=== PATIENT | male | born 1965 | race Caucasian/White ===

== ENCOUNTER → 2020-06-16 17:08 | Outpatient (BNVA) | payer MEDICAID, SELFPAY | PROVIDERS: Family Provider Nurse Practitioner Family; PCP Nurse Practitioner Family; Visit Provider Nurse Practitioner Family | DX: I10 Essential (primary) hypertension (principal); M25.512 Pain in left shoulder; L98.9 Disorder of the skin and subcutaneous tissue, unspecified; R07.9 Chest pain, unspecified; F17.210 Nicotine dependence, cigarettes, uncomplicated | CPT/HCPCS: 73030; 80053; 80061; 84443; 85025 ==

== ENCOUNTER 2020-08-04 11:25 | Emergency (ER) | payer MEDICAID, SELFPAY ==
[2020-08-04 12:10] VITALS: BP 185/106; PULSE 89; RESP 18; TEMP 36.7; O2SAT 99; BMI 20.7
--- NOTE | 2020-08-04 12:39 | ED_ITS ---
HPI - Skin/Abscess/Foreign Bdy General: Chief complaint: Skin/Abscess/Foreign Body Stated complaint: Rash/Bites all over body Time Seen by Provider: 08/04/20 12:02 Source: patient Mode of arrival: ambulatory Limitations: no limitations History of Present Illness: HPI narrative: 55-year-old male has had a rash to his hands arms and body over the last week to 10 days. State is very pruritic and has had the same rash. Denies any fever denies any pain denies any worsening improving factors. MD complaint: rash Onset (ago): week(s) Associated symptoms: Deny chills, fever(s), nausea or vomiting Review of Systems 2 Const: Denies: fever(s), chills, body aches or change in appetite Eyes: Denies: blurry vision or eye discomfort ENMT: Denies: throat pain or dental pain Card: Denies: chest pain Resp: Denies: dyspnea GI: Denies: abdominal pain, nausea, vomiting or diarrhea : Denies: dysuria Musc: Denies: neck pain or back pain Skin/Breast: Reports: rash Neuro: Denies: headache(s) Psych: Denies: depression Femi/Lymph: Denies: easy bruising All/Imm: Denies: urticaria PFSH ED PFSH: Medical History Hypertension Surgical History History of back surgery steel plate Social History Smoking and tobacco status: current every day smoker cigarettes Packs smoked per day: 0.5 Years cigarettes smoked: 40 Second hand smoke exposure: Yes Alcohol intake: former Year of sobriety/quit date alcohol: 2014 Former alcohol use details: drank beer Lives independently: Yes Household members: significant other Marital status: service: No Current occupational status: retired History of recent travel: No Current gender identity: Male Special chantale needs: No Agree to transfusion: Yes Physical Exam Const: COMMON NORMALS: no acute distress, patient oriented x3 and healthy appearing HENMT: COMMON NORMALS: normocephalic and atraumatic HEAD & SCALP: nor mocephalic and atraumatic Eye: COMMON NORMALS: Equal, round and reactive pupils present and EOMs intact bilaterally PUPIL: Yes Equal, round and reactive pupils present Neck/C-Spine: COMMON NORMALS: full ROM and supple Chest: COMMONS NORMALS: normal inspection of the chest and normal palpation of entire chest wall Resp: COMMON NORMALS: normal respiratory effort, No retractions, No use of accessory muscles and clear to auscultation bilaterally AUSCULTATION: clear to auscultation bilaterally Cardio: COMMON NORMALS: regular rate, regular rhythm and No murmurs present (Cardio) RATE: regular rate RHYTHM: regular rhythm GI: COMMON NORMALS: Normal to inspection, nondistended, normoactive bowel sounds present, Soft to palpation, non-tender and no masses PALPATION: Yes Soft to palpation Extremity: COMMON NORMALS: normal to inspection and full ROM Neuro: COMMON NORMALS: patient oriented x3, moves all extremities and no focal motor deficits Psych: COMMON NORMALS: mental status grossly normal, Normal thought process present and cooperative THOUGHT PROCESS: Normal thought process present Skin: COMMON NORMALS: no wounds; negative for no rashes or lesions noted NARRATIVE SKIN EXAM: Rash noted to hands and arms appearance of scabies GENERAL SKIN EXAM: rashes and/or lesions noted Course Vital Signs: Vital signs: Vital Signs Temperature 98.1 F 08/04/20 12:10 Pulse Rate 89 08/04/20 12:10 Respiratory Rate 18 08/04/20 12:10 Blood Pressure 185/106 08/04/20 12:10 Pulse Oximetry 99 08/04/20 12:10 MDM - Skin/Abscess/Foreign Bdy MDM Narrative: Medical decision making narrative: Patient presents here with likely scabies. Patient prescribed permethrin and is stable for discharge. She is well-appearing here. He is return if worsening. 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
== END 2020-08-04 13:13 | disposition home or self-care (01) ==
PROVIDERS: Emergency Provider Emergency Medicine; PCP Nurse Practitioner Family
DX: B86 Scabies (principal); I10 Essential (primary) hypertension; F17.210 Nicotine dependence, cigarettes, uncomplicated
CPT/HCPCS: 12345; 99281; 99282

== ENCOUNTER 2025-04-18 20:35 | Inpatient (IN) | payer MEDICAID, SELFPAY ==
[2025-04-18] VITALS (12 sets, daily range): BP systolic 123–141; BP diastolic 72–108; PULSE 0–100; RESP 14–31; TEMP 36.1–36.2; O2SAT 92–100; BMI 21.8
--- NOTE | 2025-04-18 20:40 | XRR_ITS ---
PROCEDURE INFORMATION: Exam: XR Chest Exam date and time: 04/18/2025 8:33 PM Age: 60 years old Clinical indication: Pain; Chest pressure; EMS arrival for stemi alert; Additional info: Cp TECHNIQUE: Imaging protocol: Radiologic exam of the chest. Views: 1 view. COMPARISON: CR XR shoulder LT min 2V* [id number] 06/16/2020 5:14 PM FINDINGS: Lungs: Unremarkable. No consolidation. Pleural spaces: Unremarkable. No pleural effusion. No pneumothorax. Heart/Mediastinum: Unremarkable. No cardiomegaly. Bones/joints: Unremarkable. XR/XR chest 1V portable [id number] IMPRESSION: No acute findings.
--- NOTE | 2025-04-18 20:40 | ECG_ITS ---
[employer] Test Date: 2025-04-18 Pat Name: Fortino Barfield Jr Department: Room: [facility] Gender: Male Controlled Area Checker: : 1965 Requested By: Pedro Vu Order Number: [id number] Sharlene MD: Yordy Arrieta M.D. Measurements Intervals [place] Rate: 42 P: 0 RI: 0 QRS: 72 QRSD: 93 T: 83 QT: 474 QTc: 399 Interpretive Statements SINUS RHYTHM WITH COMPLETE HEART BLOCK ST ELEVATION MYOCARDIAL INFARCTION, INFERIOR LEADS SEPTAL ST DEPRESSION, CONSIDER POSTERIOR INFARCT No previous ECG available for comparison Electronically Signed On 04-21-2025 14:00:42 CDT by Yordy Arrieta M.D. [email or web address] [id number]
[2025-04-18] MEDS: heparin 5,000 unit/mL INJ 1 mL 4000 UNIT IVP (20:45)
--- OUTSIDE RECORDS SUMMARY | 2025-04-18 20:46 | XMS_ITS | Patient Health Record ---
Author Organization [facility] Address [address] [place] [address] Care Team Providers Care Emergency Detail Driver Name Role Phone Rafaela Tucker Primary Care Provider [phone] Reason For Referral No Information Medications Medication SIG (Take, Route, Frequency, Duration) Notes Start Date End Date Status Permethrin 1 % Lotion 1 application, as directed Externally Two times a Week Active Mebendazole 100 MG Tablet Chewable 2 tablet Orally Twice a day; Duration: 3 day(s) 11/16/2020 Active Social History Tobacco Use: Social History Observation Description Date Details (start date - stop date) Current Smoker NA - NA Social History Depression Screening Social Info Question Answer Notes PHQ-9 Little interest or pleasure in doing thin gs Not at all Feeling down, depressed, or hopeless Not at all Trouble falling or staying asleep, or sleeping t oo much Not at all Feeling tired or having little energy Not at all Poor appetite or overeating Not at all Feeling bad about yourself, or that you are a failure, or have let yourself or your family down Not at all Trouble concentrating on thi ngs, such as reading the newspaper or watching television Not at all Moving or speaking so slowly that other people could have noticed. Or the opposite ? being so fidgety or restless that you have been moving around a lot more than usual Not at all Thoughts that you would be b leon off , or of hurting yourself in some way Not at all Total Score 0 Drugs/Alcohol: Social Info Question Answer Notes Alcohol Screen (Audit-C) Did you have a drink containing alcohol in the past year? No Points 0 Interpretation Negative Tobacco Use: Social Info Question Answer Notes xTobacco Use/Smoking Are you a current smoker How often do you smoke cigarettes? every day How many cigarettes a day do you smoke? 11-20 Additional Details Category Social Info Options Details Drugs/Alcohol: Do you smoke marijuana? Ad mits, Recreational use Section Notes: 11/16/20 Plan Of Treatment No Information Insurance Providers Payer Name Payer Address Payer Phone Subscriber Number Group Number Insured Name Patient Relationship to Insured Coverage Start Date Coverage End Date [place] Medicaid [address] [place] [phone] [id number] Fortino Barfield Self - patient is the insured Medical (General) History Medical History History ICD Code hypertension Surgical History Surgery Date(Month/Year) back surgery
--- NOTE | 2025-04-18 20:48 | XACV_ITS ---
Exam Room: 2 Ht: 178 cm Wt: 71 kg BSA: 1.88 m2 Gender: Male : 1965 Exam Priority: Routine Procedure(s): Procedure Description: Diagnostic procedure Procedure Description: PCI procedure Procedure Description: Drug Eluting Coronary Stent Procedure Description: PTCA Procedure Description: Miscellaneous Procedure Description: ACT Procedure Description: Coronary Angiography Diagnostic Cath Status: Emergency Diagnostic Findings * Left Main has no significant disease. * Left Anterior Descending has severe 70-80% mid vessel calcified disease. * Circumflex has no significant disease. * Mid Right Coronary Artery: Total thrombotic occlusion. DIONNE 0 flow. This is culprit vessel for STEMI. Proximal and distal vessel has severe 80% stenosis. * Coronary angiography shows right dominance. PCI Status: Emergency PCI Indication: STEMI - Immediate PCI for STEMI Interventional Findings * Mid Right Coronary Artery: 100% stenosis treated with a MDT Benson GLENROY 3.0X38 LORETTA, MDJo BERGMAN EUPHORA RX [id number] BALLOON, and AB TREK 3.00X25 RX BALLOON. * Procedure details: We engaged RCA with JR 4 guide catheter. IV heparin was administered to maintain anticoagulation. Runthrough guidewire was used to cross the occluded vessel segment and was placed in the distal vessel. We predilated the stenosis with 2.5x12mm semicompliant balloon. This restored flow with severe disease from proximal to distal vessel. Patient went into ventricular tachycardia s/p 1 shock that restored the rhythm. We then predilated the stenosis serially from distal to proximal vessel with 3.0x25mm semicompliant balloon. we then placed a 3.0x38mm Resolute glenroy LORETTA in the mid to distal vessel. This was followed by placement of an overlapping 3.0x38 mm Resolute glenroy LORETTA in the proximal to mid RCA. We post dilated these stents with 3.5x12mm NC balloon. At this time we performed the final angiogram that showed excellent stent expansion, DIONNE 3 flow and no residual stenosis. * Proximal Right Coronary Artery: 70% stenosis treated with a AB TREK 2.50X12 RX BALLOON, MDT R GLENROY 3.0X38 LORETTA, and MDT NC EUPHORA RX [id number] BALLOON. * Distal Right Coronary Artery: 70% stenosis treated with a AB TREK 3.00X25 RX BALLOON, and MDT NC EUPHORA RX [id number] BALLOON. Conclusions 1. Total thrombotic occlusion of mid RCA s/p successful revascularization with 2 stents. Has severe mid LAD stenosis, if patient shows compliance with DAPT, will plan for staged PCI in 2-4 weeks. 2. Patient went into VT briefly during the procedure and had 1 shock delivered. 3. Proximal Right Coronary Artery was treated with a Balloon, Drug Eluting Stent, and Balloon. 4. Mid Right Coronary Artery was treated with a Drug Eluting Stent, Balloon, and Balloon. 5. Distal Right Coronary Artery was treated with a Balloon, and Balloon. Recommendations * Dual antiplatelet therapy with aspirin and plavix for atleast 1 year. * High intensity statin therapy. * Outpatient cardiology follow up in 2 weeks. Will discuss staged PCI of LAD at that time. Interventional RX Recommendation: PCI w/o planned CABG Diagnostic RX Recommendation: PCI w/o planned CABG Anticoagulation: Heparin Pressures Phase:Rest AO : 122 / 94 ( 92 ) @ 4:51:52 PM 86 / 58 ( 68 ) @ 4:51:52 PM 76 / 60 ( 68 ) @ 4:51:52 PM Clinical Evaluation EBL: 5mL-10mL Procedural Details Pre-Procedure Time Out. Identified patient by full name and date of as verbalized by the patient/guarantor. Accurate & Complete Informed Consent: N/A Emergent; Informed Consent not obtained due to time critical life threat. Inpatient/Outpatient History & Physical on Chart: N/A Emergent; Informed Consent not obtained due to time critical life threat. Visualize and Verify Site with Patient/Guarantor: N/A. Relevant Radiology Images available: N/A. Pre-op teaching completed and patient verbalized understanding. The risks, benefits, and alternatives of sedation and/or procedure were discussed by physician. The patient agrees to continue. Procedure started. [facility] Clinical Fraility Score: 4: Vulnerable. Body Service Team Member Indications: ACS <= 24 hours. Chest Pain Symptom Assessment: Typical Angina Symptoms. Correct patient, site and procedure confirmed by cath team. Current diagnosis: STEMI. PERRLA. Strong, equal hand buyer bilaterally. Lungs clear x 5 lobes. IV Site on Arrival: 20 gauge in the left anticubital. IV Fluids: 0.9% NaCl at KVO. 100 mL infused prior to film laboratory technician. Oxygen started at 2liters/min via nasal canula. bilateral groins was prepped with chloroprep then draped in the usual sterile fashion. Physician notified. Baseline sample Acquired. HR: 47 BPM. Physician arrived. Physician scrubbed in. Immediate Pre-Procedure Time Out. Correct Patient: Yes; Correct Procedure: Yes; Correct Site: Yes; Correct Patient Position: Yes; Correct Supplies: Yes; Dried Flammable Prep: Yes; Blood Products Available: No;. Lidocaine 1% infiltrated to the right groin. Baseline sample Acquired. HR: 41 BPM. An attempt to gain access to the right femoral artery was unsuccessful. Manual pressure was held as needed to stop the bleeding. Admit Source: Emergency department. Lidocaine 1% infiltrated to the left groin. Arterial access obtained with micropuncture set. PCI Indication: STEMI. 6 [place] JR 4 guide catheter was inserted over the wire. Add inventory: Co-jet pilot, endoflator. View taken of RCA. Runthrough guidewire was advanced through the guide catheter to lesion in the prox RCA. Balloon inserted to lesion in the prox RCA. Inflation number : 1 A AB TREK 2.50X12 RX BALLOON was prepped and advanced across the Prox RCA , then inflated to 10 RANDY for 0:10 seconds. Inflation number: 2 The AB TREK 2.50X12 RX BALLOON was reinflated across the Prox RCA, to 10 RANDY for 0:07 seconds. Balloon out. Results checked. V-tach, one shock delivered at 120 joules. Balloon inserted to lesion in the mid to distal RCA. Inflation number : 1 A AB TREK 3.00X25 RX BALLOON was prepped and advanced across the Dist RCA , then inflated to 10 RANDY for 0:08 seconds. Inflation number: 2 The AB TREK 3.00X25 RX BALLOON was reinflated across the Dist RCA, to 10 RANDY for 0:05 seconds. Inflation number: 3 The AB TREK 3.00X25 RX BALLOON was reinflated across the Mid RCA, to 10 RANDY for 0:08 seconds. Balloon out. Stent inserted to lesion in the mid to distal RCA. Unable to cross. Undeployed stent out OTW. 6fr Guideliner catheter in OTW. Stent inserted to lesion in the mid to distal RCA. Inflation Number : 1 A MDT R GLENROY 3.0X38 LORETTA -Lot Number#[id number] 11-27-2027 was prepped and advanced across the Mid RCA. The stent was deployed at 12 RANDY for 0:11 seconds. Stent balloon out over wire. Stent inserted to lesion in the prox RCA. Inflation Number : 3 A MDT R GLENROY 3.0X38 LORETTA -Lot Number# was prepped and advanced across the Prox RCA. The stent was deployed at 12 RANDY for 0:14 seconds. Stent balloon out over wire. Results checked. Balloon inserted to lesion in the mid to distal RCA. Unable to cross with NC Euphora 3.5 X 27mm. Undeployed balloon out over the wire. Balloon inserted to lesion in the mid to distal RCA. Inflation number : 3 A MDT NC EUPHORA RX 3.03H21TX BALLOON was prepped and advanced across the Dist RCA , then inflated to 20 RANDY for 0:14 seconds. Inflation number: 4 The MDT NC EUPHORA RX 3.84G45KP BALLOON was reinflated across the Dist RCA, to 20 RANDY for 0:11 seconds. Inflation number: 2 The MDT NC EUPHORA RX 3.22I91II BALLOON was reinflated across the Mid RCA, to 20 RANDY for 0:07 seconds. Inflation number: 4 The MDT NC EUPHORA RX [id number] BALLOON was reinflated across the Prox RCA, to 20 RANDY for 0:08 seconds. Inflation number: 5 The MDT NC EUPHORA RX 3.19O57IM BALLOON was reinflated across the Prox RCA, to 20 RANDY for 0:08 seconds. Inflation number: 6 The MDT NC EUPHORA RX 3.83P97AS BALLOON was reinflated across the Prox RCA, to 20 RANDY for 0:16 seconds. Balloon out. Guideliner out otw. Results checked. Levophed gtt turned off. A 5 citizen [place] JL4 catheter in over wire. ACT drawn. Results 390 seconds. Therapeutic limits - pre-heparin administration 90-150 seconds and monitoring heparin during a vascular procedure >250 seconds. Multiple views taken of left coronary artery. Catheter removed over the standard wire. A Left femoral angiogram was performed to determine safe placement of closure device. A Left femoral angiogram was performed to determine safe placement of closure device. ACT drawn. Results 263 seconds. Therapeutic limits - pre-heparin administration 90-150 seconds and monitoring heparin during a vascular procedure >250 seconds. Physician scrubbed out. A Suture was successful obtaining hemostatsis at the Left Femoral artery insertion site. Sheath(s) sutured into position with 2-0 silk and sterile 4x4's and Op-site applied over the site. No oozing or signs and symptoms of hematoma noted. Arterial sheath flushed and connected to tranducer and pressure bag with heparinized saline. Post Procedure: Pulses reassessed and unchanged. PERRLA. Strong, equal hand buyer bilaterally. No VTE prophylaxis required. Medication's Wasted: Lidocaine 1% = 10 mL. Medication's Wasted: Other = Fentanyl 75mcg,Versed 1 mg. Total IV fluids: 270 mL. Post-op diagnosis: Total occlusion RCA. Inferior ME. Status post PCI placement of 2 LORETTA. Complications: None. Estimated blood loss: 5mL-10mL. Responsiveness - Normal response to verbal stimuli; alert and oriented, PERRLA. Airway - Unaffected, no intervention required; spontaneous ventilation. Circulation: W/N/L, pulses unchanged. Nausea/Vomiting: No. Procedure completed. Patient transferred by bed to ICU. Vital chart was stopped. Access Site Site: Left Femoral artery Sheath Size: 6 Fr Hemostasis Method: Suture Hemostasis Success: Successful Procedure Medications Start: 9:04 PM Stop: 9:04 PM Medication: Solu-Medrol (methylprednisolone) Amount: 250 mg Route: I.V. Start: 9:04 PM Stop: 9:04 PM Medication: Versed Amount: 1 mg Route: I.V. Start: 9:10 PM Stop: 9:10 PM Medication: Versed Amount: 1 mg Route: I.V. Start: 9:11 PM Stop: 9:11 PM Medication: Heparin Amount: 3000 units Route: I.V. Start: 9:13 PM Stop: 9:13 PM Medication: Fentanyl Amount: 25 mcg Route: I.V. Start: 9:14 PM Stop: 9:14 PM Medication: 0.9% Saline Amount: 250 ml Route: I.V. bolus Start: 9:15 PM Stop: 9:15 PM Medication: Atropine Amount: 0.5 mg Route: I.V. Start: 9:19 PM Stop: 9:19 PM Medication: Levophed (norepinephrine) Amount: 4 mcg/min Route: I.V. drip Start: 9:26 PM Stop: 9: PM Medication: Heparin Amount: 1000 units Route: I.V. Start: 9:28 PM Stop: 9: PM Medication: Versed Amount: 1 mg Route: I.V. Start: 9:44 PM Stop: 9:44 PM Medication: Heparin Amount: 1000 units Route: I.V. I, the attending physician, have reviewed and verified all procedure medications. Yes, all medications given per verbal order Report Signatures Finalized by Keron Tovar MD on 04/25/2025 10:47 PM
[2025-04-18 20:49] LABS: Hematocrit 39.3 % (37-53); Hemoglobin 12.80 g/dL (11.27-16.99); Mean Corpuscular HGB Conc 32.6 g/dL (30-55); Mean Corpuscular Hemoglobin 30.2 pg (27-33); Mean Corpuscular Volume 92.7 fl (82-101); Nucleated Red Blood Cells % 0 %; Platelet Count 350 10^3/cmm (157-399); Red Blood Count 4.24 10^6/uL (3.85-5.65); White Blood Count 10.14 10^3/uL (3.29-11.43)
--- NOTE | 2025-04-18 20:51 | P.HP_ITS ---
Providers/Chief Complaint 2 Admitting Physician: Keron Fish MD Primary Care Provider: Rafaela Tucker APN Chief Complaint: STEMI ALERT History of Present Illness Fortino Barfield Jr is a 60 year old male with no prior cardiac history was brought by EMS secondary to chest pain. Patient says pain started yesterday however worsened today. On EKG he has inferior ST elevation MS and complete heart block. Plan for emergent cardiac cath with PCI Review of Systems 2 Card: Reports: chest pain Medications/Allergies Home Medications ?Medication ?Instructions ?Recorded ?Confirmed ?Last Taken ?Type lisinopril 20 mg tablet 20 mg PO DAILY #30 tabs 05/2506/16/20 Unknown Rx permethrin 5 % topical cream 1 applic topical Q14D 2 d oses #60 08/04/20 Unknown Rx grams Allergies Allergy/AdvReac Type Severity Reaction Status Date / Time No Known Allergies Allergy Verified 04/18/25 20:48 PFSH Acute 2 PFSH: Medical History Hypertension Surgical History History of back surgery steel plate Social History Smoking and tobacco/nicotine status: current every day tobacco/nicotine user cigarettes Packs smoked per day: 0.5 Years cigarettes smoked: 40 Second hand smoke exposure: Yes Alcohol intake: former Year of sobriety/quit date alcohol: 2014 Former alcohol use details: drank beer Substance/Drug Use: never Lives independently: Yes Household members: significant other Marital status: service: No Current occupational status: retired Current gender identity: Male Special chantale needs: No Agree to transfusion: Yes Vitals/I&O/Wt Last Vital Signs Temp 96.9 F L 04/18/25 20:37 Pulse 42 L 04/18/25 20:37 Resp 14 04/18/25 20:37 BP 135/72 04/18/25 20:37 Pulse Ox 100 04/18/25 20:37 O2 Del Method Room Air 04/18/25 20:37 04/18/25 04/18/25 04/18/25 06:59 14:59 22:59 Intake Total 1000 / 1000 Balance 1000 / 1000 Weight last 48 hrs Weight 157 lb Physical Exam 2 Narrative: GENERAL: Patient is alert, awake and oriented x3. HEART: Regular S1 and S2. Grade 2/6 systolic murmur. LUNGS: Clear to auscultate bilaterally. CENTRAL NERVOUS SYSTEM: Grossly nonfocal. EXTREMITIES: Lower extremities without edema bilaterally. Data 04/18/25 20:42 04/18/25 20:42 A&P Assessment and plan 1. STEMI (ST elevation myocardial infarction): 2. Hypertension: Plan: Patient presented with acute inferior wall ST elevation MS. Plan for emergent cardiac catheterization with PCI Patient has been loaded with aspirin, Plavix and heparin bolus given Post procedure will need ICU transfer PDMP PDMP Reviewed: Not Reviewed Attestations 2 Medical Necessity Statement*: Care expected to cross 2 midnights. Patient has presented with acute inferior wall ST elevation MS and going for emergent procedure. Coding Level of Care Code Acute Code for [facility] Diagnoses STEMI (ST elevation myocardial infarction) I21.3 Hypertension I10
--- NOTE | 2025-04-18 20:56 | ED_ITS ---
HPI - Chest Pain 2 General: Chief Complaint: Chest Pain Stated Complaint: STEMI ALERT Time Seen by Provider: 04/18/25 20:40 History of Present Illness: 60-year-old male gentleman with no prior history of coronary disease. He presents with chest discomfort that started yesterday evening. It worsened today after eating breakfast. Pain continued to worsen this evening. He has been short of breath. His arms felt numb he says. EMS was called. EKG in the field was remarkable for inferior ST elevation. He comes in as a STEMI alert. He is awake. He is talking. Blood pressures were initially low, blood pressure currently 135 systolic. Related Data Previous Rx's ?Medication ?Instructions ?Recorded lisinopril 20 mg tablet 20 mg PO DAILY #30 tabs 05/25 01/10 permethrin 5 % topical cream 1 applic topical Q14D 2 d oses #60 08/04/20 grams Allergies Allergy/AdvReac Type Severity Reaction Status Date / Time No Known Allergies Allergy Verified 04/18/25 20:48 [facility] ED 2 PFSH: Medical History (Updated 04/18/25 @ 22:36 by Pedro Ya DO) Hypertension Surgical History History of back surgery steel plate Social History Smoking and tobacco/nicotine status: current every day tobacco/nicotine user cigarettes Packs smoked per day: 0.5 Years cigarettes smoked: 40 Second hand smoke exposure: Yes Alcohol intake: former Year of sobriety/quit date alcohol: 2014 Former alcohol use details: drank beer Substance/Drug Use: never Lives independently: Yes Household members: significant other Marital status: service: No Current occupational status: retired Current gender identity: Male Special chantale needs: No Agree to transfusion: Yes Physical Exam 2 Const: GENERAL APPEARANCE: cooperative and ill appearing NUTRITIONAL APPEARANCE: thin HENMT: COMMON NORMALS: normocephalic, atraumatic and Normal external nose present HEAD & SCALP: normocephalic and atraumatic FACE & SINUS: normal facial exam and face symmetric NOSE: Normal external nose present Eye: COMMON NORMALS: Equal, round and reactive pupils present and EOMs intact bilaterally PUPIL: Yes Equal, round and reactive pupils present Resp: COMMON NORMALS: normal respiratory effort and No use of accessory muscles Cardio: COMMON NORMALS: regular rate and regular rhythm RATE: regular rate RHYTHM: regular rhythm GI: COMMON NORMALS: Soft to palpation PALPATION: Yes Soft to palpation Extremity: COMMON NORMALS: no pedal edema Course 2 Vital Signs: Vital signs: Vital Signs Temperature 96.9 F L 04/18/25 20:37 Pulse Rate 95 04/18/25 22:00 Respiratory Rate 14 04/18/25 20:50 Blood Pressure 135/72 04/18/25 20:50 Pulse Oximetry 100 04/18/25 20:50 Oxygen Delivery Me thod Room Air 04/18/25 20:50 MDM - Chest Pain Medical Decision Making EKG in the field was significant for ST elevation NE in the inferior leads, with periods of complete heart block. He has been bradycardic in the 40s. He is maintaining a pressure. He is awake and talking. Atropine has been ordered for the bedside, although with complete heart block it may not work. Pacer pads are on. He has been given aspirin in the field, will on arrival he received heparin bolus as well as Plavix 600 mg. He received 4 morphine and 4 Zofran for pain and nausea. He is getting a fluid bolus. As he came in as a STEMI alert from the field, the cath team arrived shortly after he did, and have taken him to the [facility] for angiogram. His chest x-ray is clear. White blood cell count is 10, platelet count is normal. Hemoglobin is 13 Lab Data 04/18/25 20:42 04/18/25 20:42 Radiology Impressions Chest X-Ray 04/18/25 20:40 IMPRESSION: No acute findings. Laboratory Results WBC 10.14 10^3/uL (3.29-11.43) 04/18/25 20:42 RBC 4.24 10^6/uL (3.85-5.65) 04/18/25 20:42 Hgb 12.80 g/dL (11.27-16.99) 04/18/25 20:42 Hct 39.3 % (37-53) 04/18/25 20:42 MCV 92.7 fl (82-101) 04/18/25 20:42 MCH 30.2 pg (27-33) 04/18/25 20:42 MCHC 32.6 g/dL (30-55) 04/18/25 20:42 RDW 13.5 % (12.1-15.1) 04/18/25 20:42 Plt Count 350 10^3/cmm (157-399) 04/18/25 20:42 MPV 8.9 fL (7.4-10.4) 04/18/25 20:42 Neut % (Auto) 70.3 % 04/18/25 20:42 Lymph % (Auto) 21.9 % 04/18/25 20:42 [place] % (Auto) 6.0 % 04/18/25 20:42 Eos % (Auto) 0.9 % 04/18/25 20:42 Baso % (Auto) 0.6 % 04/18/25 20:42 Neut # (Auto) 7.13 10^3/uL (1.8-7.7) 04/18/25 20:42 Lymph # (Auto) 2.2 10^3/uL (0.8-4.8) 04/18/25 20:42 [place] # (Auto) 0.6 10^3/uL (0.2-0.9) 04/18/25 20:42 Eos # (Auto) 0.1 10^3/uL (0.0-0.8) 04/18/25 20:42 Baso # (Auto) 0.1 10^3/uL (0.0-0.1) 04/18/25 20:42 Nucleated RBC % (auto) 0 % 04/18/25 20:42 Nucleated RBCs # 0.0 /100WBC 04/18/25 20:42 PT 13.00 SECONDS (12.1-14.9) 04/18/25 20:42 INR 0.92 (0.8-1.2) 04/18/25 20:42 APTT 29.8 SECONDS (23.9-36.7) 04/18/25 20:42 Sodium 143 mmol/L (136-145) 04/18/25 20:42 Potassium 4.2 mmol/L (3.5-5.1) 04/18/25 20:42 Chloride 109 mmol/L (98-107) H 04/18/25 20:42 Carbon Dioxide 22 mmol/L (22-29) 04/18/25 20:42 Anion Gap 16.2 (5-19) 04/18/25 20:42 BUN 19 mg/dL (8-23) 04/18/25 20:42 Creatinine 1.3 mg/dL (0.7-1.2) H 04/18/25 20:42 GFR Calculation 56.1 mL/min (90-130) L 04/18/25 20:42 Glucose 110 mg/dL (65-115) 04/18/25 20:42 Calculated Osmolality 299 mOsm/kg (285-295) H 04/18/25 20:42 Calcium 9.1 mg/dL (8.5-10.5) 04/18/25 20:42 Total Bilirubin 0.4 mg/dL (0.15-1.2) 04/18/25 20:42 AST 21 U/L (0-40) 04/18/25 20:42 ALT 18 U/L (0-41) 04/18/25 20:42 Alkaline Phosphatase 79 U/L (40-130) 04/18/25 20:42 Troponin T Baseline 29 ng/L (0-15) H 04/18/25 20:42 NT-Pro-B Natriuret Pep 73 pg/mL (0-125) 04/18/25 20:42 Total Protein 6.2 g/dL (6.6-8.7) L 04/18/25 20:42 Albumin 3.9 g/dL (3.5-5.2) 04/18/25 20:42 Globulin 2.3 g/dL (1.3-4.6) 04/18/25 20:42 All radiology interpretation(s) finalized by discharge Critical Care Time 2 Critical Care Time: Critical Care Time: Yes Total Critical Care Time: 35 Attestation: This case had a high probability of a clinically significant, sudden, or life threatening deterioration of this patient's condition which required my full and direct attention, intervention and personal management. Time is independent of any procedures performed. Discharge Plan Discharge Patient Disposition: Admitted As Inpatient Admit Provider: Keron Tovar Clinical Impression: STEMI (ST elevation myocardial infarction) Condition: Critical Coding Level of Care Code ED Kayaking Instructor for Alex Ngo
[2025-04-18 21:01] LABS: INR 0.92 (0.8-1.2); Prothrombin Time 13.00 SECONDS (12.1-14.9)
[2025-04-18 21:02] LABS: Partial Thromboplastin Time 29.8 SECONDS (23.9-36.7)
[2025-04-18 21:10] LABS: Troponin(5th) Baseline 29 ng/L (0-15)
[2025-04-18 21:17] LABS: Alanine Aminotransferase 18 U/L (0-41); Albumin Level 3.9 g/dL (3.5-5.2); Alkaline Phosphatase 79 U/L (40-130); Anion Gap 16.2 (5-19); Aspartate Amino Transferase 21 U/L (0-40); Blood Urea Nitrogen 19 mg/dL (8-23); Calcium 9.1 mg/dL (8.5-10.5); Carbon Dioxide 22 mmol/L (22-29); Chloride 109 mmol/L (98-107); Creatinine Clr Calc Pharmacy 61.0103; Globulin 2.3 g/dL (1.3-4.6); Glucose 110 mg/dL (65-115); NT Pro B Type Natriuretic Pept 73 pg/mL (0-125); Osmolality Calculated 299 mOsm/kg (285-295); Potassium 4.2 mmol/L (3.5-5.1); Sodium 143 mmol/L (136-145); Total Protein 6.2 g/dL (6.6-8.7)
--- NOTE | 2025-04-18 21:56 | PM.PROC ---
Procedure Note: Date of procedure: 04/18/25 Pre-procedure diagnosis: STEMI Post-procedure diagnosis: other (Total thrombotic occlusion of mid RCA s/p PCI with 2 stents) Procedure: Mid RCA is totally occluded with severe disease from proximal to mid vessel. Status post successful revascularization with 2 stents. Mid LAD has significant 70% stenosis. Will need PCI as a staged procedure. According to patient's friend, the patient is not compliant with medications and does not follow with physicians. After discussion with patient, we will decide if LAD can be stented in case he shows willingness to medication compliance. Patient had shock x1 as went into Ventricular tachycardia Dual antiplatelet therapy with aspirin and plavix High intensity statin therapy Performing Provider: Keorn Tovar Complications: None Condition: critical Disposition: ICU Coding Level of Care Code Acute Code for Alex Ngo
--- NOTE | 2025-04-18 22:07 | ECG_ITS ---
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
[2025-04-18 23:10] LABS: Troponin 5 2HR 264.7 ng/L (0-15); Troponin 5 2HR Delta 235.7 ABS# (0-10)
[2025-04-19] VITALS (65 sets, daily range): BP systolic 90–153; BP diastolic 56–90; PULSE 57–104; RESP 5–27; TEMP 36.6; O2SAT 80–99
--- NOTE | 2025-04-19 02:40 | ECG_ITS ---
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
[2025-04-19 04:32] LABS: Troponin 5 6HR 855.8 ng/L (0-15); Troponin 5 6HR Delta 826.8 ng/L (0-12)
--- OUTSIDE RECORDS SUMMARY | 2025-04-19 09:49 | XMS_ITS | Patient Health Record ---
Author Organization [facility] Address [address] [place] [address] Care Team Providers Care Pediatric Acute Care Unit Nurse Name Role Phone Rafaela Tucker Primary Care Provider [phone] Reason For Referral No Information Medications Medication [...] End Date [place] Medicaid [address] [place] [address] [id number] Fortino Barfield Self - patient is the insured Medical (General) History Medical History History ICD Code hypertension Surgical History Surgery Date(Month/Year) back surgery
--- NOTE | 2025-04-19 10:19 | PC.NURSE ---
Dr. Deleon came to bedside placed minx closure device to Left groin femoral sheath
--- NOTE | 2025-04-19 11:26 | PC.PHAR ---
Patient states he is not taking any medications. Patient states he sometimes takes excedrin extra strength if need but has been a while.
--- NOTE | 2025-04-19 12:24 | P.PN_ITS ---
<Statement entered by Keron Tovar M.D - 04/20/25 10:41> Patient was cared for in conjunction with an advanced practice practitioner.? I reviewed the chart and all pertinent data including imaging, telemetry, and laboratory results.? I discussed the patient in detail with the advanced practice practitioner.? Please see?their note for progress note, testing results and agreed upon plan of care for the patient. Subjective 2 Subjective: He has done well overnight, no chest pain or shortness of breath this morning. S/P coronary angiogram and LORETTA x 2 to the mid RCA. He had Mynx closure to the left groin. After he completes bedrest 6 hours he may get out of bed. Possible discharge tomorrow. Vitals/I&O/Wt Last Vital Signs Temp 97.2 F L 04/18/25 22:00 Pulse 100 04/19/25 06:45 Resp 24 H 04/19/25 06:45 BP 131/85 04/19/25 06:45 Pulse Ox 98 04/19/25 06:45 O2 Del Method Room Air 04/18/25 22:21 04/18/25 04/19/25 04/19/25 22:59 06:59 14:59 Intake Total 2000 / 1999 350 / 350 Output Total 300 / 300 300 / 300 Balance 2000 / 1700 -300 / 1700 50 / 50 Weight last 48 hrs Weight 156 lb Weight 152 lb 3.2 oz Weight 157 lb Physical Exam 2 Const: COMMON NORMALS: no acute distress and patient oriented x3 GENERAL APPEARANCE: cooperative ORIENTATION/CONSCIOUSNESS: Yes awake, Yes oriented to person, Yes oriented to place and Yes oriented to time Chest: COMMONS NORMALS: normal inspection of the chest and normal palpation of entire chest wall CHEST: Yes Symmetrical chest wall rise Resp: COMMON NORMALS: normal respiratory effort, No retractions, No use of accessory muscles and clear to auscultation bilaterally AUSCULTATION: clear to auscultation bilaterally Cardio: COMMON NORMALS: regular rate, regular rhythm, S1 normal heart sound present, S2 normal heart sound present, No gallops present (Cardio), No clicks present (Cardio), No murmurs present (Cardio) and No rub (Cardio) RATE: r egular rate RHYTHM: regular rhythm HEART SOUNDS: S1 normal heart sound present and S2 normal heart sound present PERIPHERAL PULSES: radial pulses present positive right 2+ and femoral pulses present positive right 2+ Neuro: COMMON NORMALS: patient oriented x3 and moves all extremities S ENSORIUM/ORIENTATION: Yes oriented to person, Yes oriented to place and Yes oriented to time Skin: WOUNDS: Yes surgical site (no hematoma palpable) Details: no odor Data 04/18/25 20:42 04/18/25 20:42 A&P Assessment and plan 1. STEMI (ST elevation myocardial infarction): 2. Hypertension: Plan: Continue aspirin, Plavix, atorvastatin. Echocardiogram ordered. Blood pressure normotensive. PDMP PDMP Reviewed: Not Reviewed Attestations 2 Medical Necessity Statement*: STEMI Coding Level of Care Code Acute Code for [facility] Diagnoses STEMI (ST elevation myocardial infarction) I21.3 Hypertension I10
--- NOTE | 2025-04-19 12:26 | USCV_ITS ---
Lico Cid Fortino Age: 60 Gender: M : 1965 Exam Date: 04/19/2025 14:20 Ordering Phys: Joanie Mays Technologist: Exam Location: [facility] [place] Indication: cp sob BP: 125 / 69 HR: 70 Rhythm: Sinus Technical Quality: Adequate MEASUREMENTS (Male / Female) Normal Values 2D ECHO LV Diastolic Diameter PLAX 3.8 cm 4.2 - 5.9 / 3.9 - 5.3 cm IVS Diastolic Thickness 1.1 cm 0.6 - 1.0 / 0.6 - 0.9 cm IVS Systolic Thickness 1.4 cm LVPW Diastolic Thickness 1.1 cm 0.6 - 1.0 / 0.6 - 0.9 cm LVPW Systolic Thickness 1.6 cm LVOT Diameter 2.0 cm LV Ejection Fraction 2D Teich 63.0 % LV Ejection Fraction MOD 2C 68.5 % LV Ejection Fraction 2C AL 67.6 % LA Diameter 3.0 cm RA Systolic Volume 4C AL 38.9 ml RA Systolic Volume 4C MOD 36.1 ml Aorta at Sinotubular Diameter 3.2 cm M-MODE LA Ao Ratio MM 1.1 AV Cusp Separation MM 2.3 cm DOPPLER AV Peak Velocity 142.7 cm/s LVOT Peak Velocity 74.0 cm/s AV Area Cont Eq vti 1.7 cm squared AV Area Cont Eq pk 1.6 cm squared MV Peak Velocity 90.0 cm/s MV Area PHT 3.4 cm squared Mitral E to A Ratio 0.9 TV Peak Velocity 230.5 cm/s TR Peak Velocity 283.0 cm/s TR Peak Gradient 32.0 mmHg TV Peak E Velocity 72.0 cm/s PV Peak Velocity 98.0 cm/s FINDINGS Left Ventricle Normal left ventricular cavity size and systolic function, EF 67%. Normal left ventricular diastolic function. Mild concentric left ventricular hypertrophy. Right Ventricle Normal right ventricular size and systolic function Right Atrium Normal right atrial size Left Atrium Normal left atrial size Mitral Valve Mild thickening of the mitral valve leaflets. Trace mitral valve regurgitation. No mitral valve stenosis Aortic Valve Aortic valve not well-visualized. Mild calcification of the aortic valve leaflets. No aortic valve stenosis. No aortic valve regurgitation Tricuspid Valve Mild tricuspid valve regurgitation. Normal pulmonary pressure. Pulmonic Valve Normal pulmonic valve function Pericardium No pericardial effusion Aorta Normal aortic root and ascending aorta size. IVC Normal IVC size CONCLUSIONS 1. Normal left ventricular and right ventricular size and systolic function, LVEF 67% 2. No significant valvular abnormalities 3. Normal pulmonary pressure Yordy Arrieta MD, FACC (Electronically Signed) Final Date: 19 April 2025 19:21 S
[2025-04-20] VITALS (21 sets, daily range): BP systolic 114–171; BP diastolic 71–120; PULSE 54–78; RESP 12–24; TEMP 37.2; O2SAT 96–100
[2025-04-20 08:51] LABS: Blood Urea Nitrogen 17 mg/dL (8-23); Calcium 8.5 mg/dL (8.5-10.5); Carbon Dioxide 25 mmol/L (22-29); Chloride 102 mmol/L (98-107); Creatinine Clr Calc Pharmacy 97.9221; Glucose 85 mg/dL (65-115); Osmolality Calculated 283 mOsm/kg (285-295); Sodium 136 mmol/L (136-145)
[2025-04-20 09:00] LABS: Anion Gap 13.2 (5-19); Potassium 4.2 mmol/L (3.5-5.1)
--- NOTE | 2025-04-20 09:56 | P.DS_ITS ---
<Statement entered by Keron Tovar M.D - 04/22/25 12:08> Patient was cared for in conjunction with an advanced practice practitioner.? I reviewed the chart and all pertinent data including imaging, telemetry, and laboratory results.? I discussed the patient in detail with the advanced practice practitioner.? Please see?their note for discharge summary, testing results and agreed upon plan of care for the patient. If patient stays compliant with dual platelet therapy, will consider staged PCI of mid LAD. Otherwise medical therapy as it is stable CAD. Had PCI of RCA with 2 stents. This is culprit vessel for STEMI. During procedure had brief VT episode, treated with 1 shock. Discharge Providers Date of Admission: 04/18/25 21:59 Date of Discharge: April 20, 2025 Attending Provider at Admission: Keron Tovar M.D Attending Provider at Discharge: Keron Tovar M.D Primary Care Provider: Rafaela Tucker APN Diagnoses at Discharge Discharge Diagnosis 1. STEMI (ST elevation myocardial infarction): 2. Hypertension: Reason for Visit Reason for Visit: STEMI ALERT Brief History: Fortino Barfield Jr is a 60 year old male with no prior cardiac history was brought by EMS secondary to chest pain. Patient says pain started yesterday however worsened today. On EKG he has inferior ST elevation RI and complete heart block. Plan for emergent cardiac cath with PCI Hospital Course Hospital Course He underwent coronary angiogram with 2 stents placed to the mid RCA. Mynx closure to the left groin successful, no hematoma or bleeding, stable after ambulation. No chest pain or shortness of breath post procedure. Blood pressure was well-controlled after he was started on metoprolol tartrate 25 mg twice a day. Continue aspirin, statin, Plavix. Utilized meds to beds to ensure adequate medication supply. He was instructed to not miss even a single dose of Plavix. Purpose of the medications was explained. Follow-up in cardiology clinic in 7 to 10 days. Physical Exam Const: COMMON NORMALS: no acute distress and patient oriented x3 GENERAL APPEARANCE: cooperative ORIENTATION/CONSCIOUSNESS: Yes awake, Yes oriented to person, Yes oriented to place and Yes oriented to time Chest: COMMONS NORMALS: normal inspection of the chest and normal palpation of entire chest wall CHEST: Yes Symmetrical chest wall rise Resp: COMMON NORMALS: normal respiratory effort, No retractions, No use of accessory muscles and clear to auscultation bilaterally AUSCULTATION: clear to auscultation bilaterally Cardio: COMMON NORMALS: regular rate, regular rhythm, S1 normal heart sound present, S2 normal heart sound present, No gallops present (Cardio), No clicks present (Cardio), No murmurs present (Cardio) and No rub (Cardio) RATE: regular rate RHYTHM: regular rhythm HEART SOUNDS: S1 normal heart sound present and S2 normal heart sound present PERIPHERAL PULSES: radial pulses present positive right 2+ and femoral pulses present positive right 2+ Neuro: COMMON NORMALS: patient oriented x3 and moves all extremities SENSORIUM/ORIENTATION: Yes oriented to person, Yes oriented to place and Yes oriented to time Skin: WOUNDS: Yes surgical site (no hematoma palpable) Details: no odor Discharge Data Studies Completed and Pending Completed Studies During Hospitalization Category Date Time Status XR chest 1V portable [id number] Stat Exams 04/18/25 20:40 Completed CV. echo complete* [id number] Routine Ultrasound 04/19/25 12:26 Completed Pending at discharge Category Date Time Status ANDROID IOS DEVELOPER request for service Routine Exams 04/18/25 20:48 Taken Radiology Impressions Chest X-Ray 04/18/25 20:40 IMPRESSION: No acute findings. Laboratory Results WBC 10.14 10^3/uL (3.29-11.43) 04/18/25 20:42 RBC 4.24 10^6/uL (3.85-5.65) 04/18/25 20:42 Hgb 12.80 g/dL (11.27-16.99) 04/18/25 20:42 Hct 39.3 % (37-53) 04/18/25 20:42 MCV 92.7 fl (82-101) 04/18/25 20:42 MCH 30.2 pg (27-33) 04/18/25 20:42 MCHC 32.6 g/dL (30-55) 04/18/25 20:42 RDW 13.5 % (12.1-15.1) 04/18/25 20:42 Plt Count 350 10^3/cmm (157-399) 04/18/25 20:42 MPV 8.9 fL (7.4-10.4) 04/18/25 20:42 Neut % (Auto) 70.3 % 04/18/25 20:42 Lymph % (Auto) 21.9 % 04/18/25 20:42 [place] % (Auto) 6.0 % 04/18/25 20:42 Eos % (Auto) 0.9 % 04/18/25 20:42 Baso % (Auto) 0.6 % 04/18/25 20:42 Neut # (Auto) 7.13 10^3/uL (1.8-7.7) 04/18/25 20:42 Lymph # (Auto) 2.2 10^3/uL (0.8-4.8) 04/18/25 20:42 [place] # (Auto) 0.6 10^3/uL (0.2-0.9) 04/18/25 20:42 Eos # (Auto) 0.1 10^3/uL (0.0-0.8) 04/18/25 20:42 Baso # (Auto) 0.1 10^3/uL (0.0-0.1) 04/18/25 20:42 Nucleated RBC % (auto) 0 % 04/18/25 20:42 Nucleated RBCs # 0.0 /100WBC 04/18/25 20:42 PT 13.00 SECONDS (12.1-14.9) 04/18/25 20:42 INR 0.92 (0.8-1.2) 04/18/25 20:42 APTT 29.8 SECONDS (23.9-36.7) 04/18/25 20:42 Sodium 136 mmol/L (136-145) 04/20/25 08:14 Potassium 4.2 mmol/L (3.5-5.1) 04/20/25 08:14 Chloride 102 mmol/L (98-107) 04/20/25 08:14 Carbon Dioxide 25 mmol/L (22-29) 04/20/25 08:14 Anion Gap 13.2 (5-19) 04/20/25 08:14 BUN 17 mg/dL (8-23) 04/20/25 08:14 Creatinine 0.8 mg/dL (0.7-1.2) 04/20/25 08:14 GFR Calculation 98.3 mL/min (90-130) 04/20/25 08:14 Glucose 85 mg/dL (65-115) 04/20/25 08:14 Calculated Osmolality 283 mOsm/kg (285-295) L 04/20/25 08:14 Calcium 8.5 mg/dL (8.5-10.5) 04/20/25 08:14 Total Bilirubin 0.4 mg/dL (0.15-1.2) 04/18/25 20:42 AST 21 U/L (0-40) 04/18/25 20:42 ALT 18 U/L (0-41) 04/18/25 20:42 Alkaline Phosphatase 79 U/L (40-130) 04/18/25 20:42 Troponin T Baseline 29 ng/L (0-15) H 04/18/25 20:42 Troponin T 120 Minute 264.7 ng/L (0-15) H 04/18/25 22:37 Delta Troponin T 235.7 ABS# (0-10) H* 04/18/25 22:37 Troponin T Hi Sens 6Hr 855.8 ng/L (0-15) H 04/19/25 02:53 Troponin T Hi Sens 6Hr Delta 826.8 ng/L (0-12) H* 04/19/25 02:53 NT-Pro-B Natriuret Pep 73 pg/mL (0-125) 04/18/25 20:42 Total Protein 6.2 g/dL (6.6-8.7) L 04/18/25 20:42 Albumin 3.9 g/dL (3.5-5.2) 04/18/25 20:42 Globulin 2.3 g/dL (1.3-4.6) 04/18/25 20:42 Vitals Last Vital Signs Temp 97.8 F 04/19/25 22:00 Pulse 58 L 04/20/25 06:00 Resp 21 H 04/20/25 06:00 BP 149/74 04/20/25 06:00 Pulse Ox 99 04/20/25 06:00 O2 Del Method Room Air 04/19/25 22:00 Discharge Plan Discharge Patient Disposition: Home Condition: Stable Prescriptions: New atorvastatin 40 mg Tablet 40 mg PO BEDTIME Qty: 90 1RF clopidogrel 75 mg Tablet 75 mg PO DAILY Qty: 90 3RF aspirin 81 mg Tablet,Delayed Release (Dr/Ec) 81 mg PO DAILY Qty: 90 0RF metoprolol tartrate 50 mg Tablet 25 mg PO BID@0900,2100 Qty: 180 1RF nitroglycerin 0.4 mg Tablet, Sublingual 0.4 mg sublingual Q5M PRN (Reason: Chest Pain) Qty: 30 0RF Discharge Order = DC NOW: Discharge Order (Routine); Ordered 04/20/25 Ordered By: Joanie Mays Referrals: Rafaela Tucker APN [Primary Care Provider, Family Practice] - 1 week Referral Note: Kris with Dr. Triplett on Saturday04/27/2025 @ 11:40 am Alisa Matias, MULTIFOCAL LENS ASSEMBLER [Nurse Practitioner, Cardiology] - 7-10 days Referral Note: Follow-up appointment is scheduled for 04/28/25 at 1 p.m. Keron Tovar M.D [Physician, Cardiology] - 2 months Referral Note: Follow-up apointment is scheduled with Dr. Tovar for 06/29/25, at 1:45 p.m. Discharge Diet: Cardiac Discharge Activity: Increase activity as tolerated Patient Instructions: Metoprolol (By mouth) (Lopressor, Toprol XL), Nitroglycerin (By mouth), Aspirin (By mouth) (Nathaniel Extra Strength, Nathaniel Aspirin [facility],..., Atorvastatin (By mouth) (Lipitor, Atorvaliq), Clopidogrel (By mouth) (Plavix), Coronary Angioplasty (DC), Chest Pain Stoplight, Opioid Safety, Post Angiogram Home Care Instructions, Patient Portal & Kris Instructions Activity Restrictions/Additional Instructions: No lifting over 5 pounds for the next 4 days. Discharge Date/Time: 04/20/25 11:35 Discharge Attestations Time Spent in Discharge Care*: less than 30 min Quality Metrics Clinical Quality Measures [ Acute Myocardial Infaction { Clinical Trial Participant: No; Contraindication to aspirin: None; Aspirin prescribed; Contraindication to statin: None; Statin prescribed; Contraindication to PCI: None; PCI performed;}] Coding Level of Care Code Acute Code for [facility] Fwd Diagnoses STEMI (ST elevation myocardial infarction) I21.3 Hypertension I10
--- NOTE | 2025-04-20 11:02 | PC.NURSE ---
Patient received DC orders. All IVs removed. Medications sent meds to beds. All patient belongings sent with patient. Activity restrictions explained to patient who verbalized understanding. All follow up appointments made. Patient will exit to main door via w/c.
--- NOTE | 2025-04-20 11:36 | PC.NURSE ---
Patient DC at 1782
== END 2025-04-20 11:35 | disposition home or self-care (01) | DRG 322 ==
LOC: ER 20:45 → CDL 20:46 → ICU 22:00
PROVIDERS: Nurse Practitioner Family; Admitting Provider Internal Medicine; Emergency Provider Emergency Medicine; PCP Nurse Practitioner Family; Visit Provider Internal Medicine
PROC: 02703DZ Dilation of Coronary Artery, One Artery with Intraluminal Device, Percutaneous Approach (ICD-10-PCS; principal; 2025-04-18 21:00)
PROC: 02703DZ Dilation of Coronary Artery, One Artery with Intraluminal Device, Percutaneous Approach (ICD-10-PCS; 2025-04-18 21:00)
DX: I21.11 ST elevation (STEMI) myocardial infarction involving right coronary artery (principal); I47.20 Ventricular tachycardia, unspecified; I44.2 Atrioventricular block, complete; I25.10 Atherosclerotic heart disease of native coronary artery without angina pectoris; I10 Essential (primary) hypertension; F17.210 Nicotine dependence, cigarettes, uncomplicated; Z79.02 Long term (current) use of antithrombotics/antiplatelets; Z79.82 Long term (current) use of aspirin
CPT/HCPCS: 36415; 71045; 80048; 80053; 83880; 84484; 85025; 85347; 85610; 85730; 93005; 93306; 93454; 96374; 96375; 99152; 99153; 99285; C1725; C1760; C1769; C1874; C1887; C1894; C9606; G0269; J1644; J2250; J2919; J3010; J7030; J9999; Q0162; Q9967

== ENCOUNTER → 2025-04-29 15:47 | Outpatient (BNVA) | payer MEDICAID, SELFPAY | PROVIDERS: PCP Nurse Practitioner Family; Visit Provider Internal Medicine Cardiovascular Disease | DX: I25.810 Atherosclerosis of coronary artery bypass graft(s) without angina pectoris (principal); I10 Essential (primary) hypertension; E78.5 Hyperlipidemia, unspecified; Z79.02 Long term (current) use of antithrombotics/antiplatelets; Z79.82 Long term (current) use of aspirin; F17.210 Nicotine dependence, cigarettes, uncomplicated; Z95.5 Presence of coronary angioplasty implant and graft; I25.2 Old myocardial infarction; I25.10 Atherosclerotic heart disease of native coronary artery without angina pectoris; R07.9 Chest pain, unspecified; R58 Hemorrhage, not elsewhere classified | CPT/HCPCS: 99214 ==

== ENCOUNTER → 2025-05-27 12:32 | Outpatient (BNVA) | payer MEDICAID, SELFPAY | PROVIDERS: PCP Nurse Practitioner Family; Visit Provider Internal Medicine Cardiovascular Disease | DX: I10 Essential (primary) hypertension (principal); R07.9 Chest pain, unspecified; R58 Hemorrhage, not elsewhere classified | CPT/HCPCS: 80048; 85025; 85610 ==

== ENCOUNTER 2025-06-03 06:57 | Outpatient (CLI) | payer MEDICAID, SELFPAY ==
--- NOTE | 2025-06-03 07:22 | XACV_ITS ---
Exam Room: 2 Ht: 178 cm Wt: 68 kg BSA: 1.83 m2 Gender: Male : 1965 Any Known Allergies: Shellfish Exam Priority: Routine Procedure(s): Procedure Description: Diagnostic procedure Procedure Description: PCI procedure Procedure Description: Drug Eluting Coronary Stent Procedure Description: PTCA Procedure Description: Miscellaneous Procedure Description: ACT Procedure Description: Coronary Angiography Diagnostic Cath Status: Elective Diagnostic Findings * INDICATION: Staged PCI of mid LAD. * Left Main has no significant disease. * Circumflex has luminal irregularities. * Right Coronary Artery not injected as this is staged PCI of mid LAD. * Mid Left Anterior Descending: significant 80% stenosis, DIONNE: 3 flow. * Coronary angiography shows right dominance. PCI Status: Elective PCI Indication: Staged PCI Interventional Findings * Procedure detail: We engaged left main artery with XB 3.0 guide catheter. Run-through wire was used to cross the stenosis. We performed intravascular lithotripsy with 3.0 x 12 mm shockwave balloon. This was followed by predilation of vessel with 3.0 x 20 mm NC balloon. We then performed PCI with 3.0 x 30 mm resolute [place] drug-eluting stent. We postdilated the stent with 3.0 x 20 mm NC balloon at high pressure. At this time final angiogram was performed that showed excellent stent expansion and no residual stenosis. Guidewire and guide catheter were removed. Patient left the Fountain Operator in a stable condition. * Mid Left Anterior Descendin% stenosis treated with a Shockwave IVL 3.0 X 12mm, MDT PACHECO EUPHORA RX [id number] BALLOON, and RAGHU Knowles LEE ANN 3.0X30 LORETTA. 0% residual stenosis, DIONNE: 3 flow. Conclusions 1. Severe mid LAD stenosis s/p PCI with shockwave intravascular lithotripsy and 1 stent placement. 2. Mid Left Anterior Descending was treated with a Balloon, Balloon, and Drug Eluting Stent. Recommendations * Dual antiplatelet therapy with aspirin and plavix. * High intensity statin therapy. * Outpatient cardiology follow up in 2 weeks. Interventional RX Recommendation: PCI w/o planned CABG Diagnostic RX Recommendation: PCI w/o planned CABG Anticoagulation: Heparin Pressures Phase:Rest AO : 134 / 84 ( 105 ) @ 11:24:00 AM Clinical Evaluation EBL: 5mL-10mL Procedural Details Procedure Consent Obtained. Pre-Procedure Time Out. Identified patient by full name and date of as verbalized by the patient/guarantor. Does the consent match the physician's order: Yes. Accurate & Complete Informed Consent: Yes. Inpatient/Outpatient History & Physical on Chart: Yes. If H&P is completed, is and addenduem needed: No; If yes, is the addendum complete: N/A. Visualize and Verify Site with Patient/Guarantor: N/A. Relevant Radiology Images available: Yes. The risks, benefits, and alternatives of sedation and/or procedure were discussed by physician. The patient agrees to continue. Procedure started. [facility] Clinical Fraility Score: 4: Vulnerable. Fountain Operator Indications: Stable Known CAD. Chest Pain Symptom Assessment: Typical Angina Symptoms. Correct patient, site and procedure confirmed by cath team. Current diagnosis: Chest Pain. PERRLA. Strong, equal hand forensic psychologist bilaterally. Lungs clear x 5 lobes. IV Site on Arrival: 20 gauge in the right anticubital. IV Fluids: 0.9% NaCl at KVO. 0 mL infused prior to label drier. Pre Procedural Pulses: bilateral radial was 2+. Pre Procedural Pulses: bilateral dorsalis pedis was Doppled. Pre Procedural Pulses: bilateral posterior tibial was Doppled. Oxygen started at 2liters/min via nasal canula. right radial was prepped with chloroprep then draped in the usual sterile fashion. right groin was prepped with chloroprep then draped in the usual sterile fashion. Baseline sample Acquired. HR: 55 BPM. Physician notified. Physician arrived. Admit Source: Out Patient. Physician scrubbed in. Immediate Pre-Procedure Time Out. Correct Patient: Yes; Correct Procedure: Yes; Correct Site: Yes; Correct Patient Position: Yes; Correct Supplies: Yes; Dried Flammable Prep: Yes; Blood Products Available: No;. Lidocaine 1% infiltrated to the right radial. Ultrasound obtained to assist with arterial access. Arterial access obtained. 6 albanian XB 3.5 guide catheter was inserted over the wire. PCI Indication: CAD (without ischemic symptoms). Runthrough guidewire was advanced through the guide catheter to lesion in the mid LAD. Guidewire advanced across lesion. IVL Shockwave Balloon in over the wire to lesion in mid LAD. Inflation number : 1 A Shockwave IVL 3.0 X 12mm was prepped and advanced across the Mid LAD , then inflated to 4 RANDY for 0:21 seconds. Inflation number: 2 The Shockwave IVL 3.0 X 12mm was reinflated across the Mid LAD, to 4 RANDY for 0:08 seconds. Inflation number: 3 The Shockwave IVL 3.0 X 12mm was reinflated across the Mid LAD, to 4 RANDY for 0:17 seconds. Inflation number: 4 The Shockwave IVL 3.0 X 12mm was reinflated across the Mid LAD, to 4 RANDY for 0:18 seconds. Inflation number: 5 The Shockwave IVL 3.0 X 12mm was reinflated across the Mid LAD, to 4 RANDY for 0:16 seconds. Inflation number: 6 The Shockwave IVL 3.0 X 12mm was reinflated across the Mid LAD, to 4 RANDY for 0:16 seconds. Balloon out. Balloon inserted to lesion in the mid LAD. Inflation number : 7 A MDT NC EUPHORA RX [id number] BALLOON was prepped and advanced across the Mid LAD , then inflated to 14 RANDY for 0:12 seconds. Inflation number: 8 The MDT NC EUPHORA RX [id number] BALLOON was reinflated across the Mid LAD, to 14 RANDY for 0:15 seconds. Balloon out. Stent inserted to lesion in the mid LAD. Inflation Number : 9 A MDT R LEE ANN 3.0X30 LORETTA -Lot Number# [id number] EXP 07-12-2027 was prepped and advanced across the Mid LAD. The stent was deployed at 12 RANDY for 0:17 seconds. Stent balloon out over wire. Results checked. Balloon inserted to lesion in the mid LAD. Inflation number: 10 The MDT NC EUPHORA RX [id number] BALLOON was reinflated across the Mid LAD, to 18 RANDY for 0:12 seconds. Inflation number: 11 The MDT NC EUPHORA RX [id number] BALLOON was reinflated across the Mid LAD, to 18 RANDY for 0:11 seconds. Balloon out. Wire out. Results checked. ACT drawn. Results 275 seconds. Therapeutic limits - pre-heparin administration 90-150 seconds and monitoring heparin during a vascular procedure >250 seconds. Guide catheter out. A TR Band was successful obtaining hemostatsis at the Right Radial artery insertion site. Post Procedure: Pulses reassessed and unchanged. PERRLA. Strong, equal hand forensic psychologist bilaterally. No VTE prophylaxis required. Medication's Wasted: Lidocaine 1% = 18 mL. Medication's Wasted: Nitro = 49.8 mg. Medication's Wasted: Other = Fentanyl 25mcg, Versed 1 mg. Total IV fluids: 50 mL. Post-op diagnosis: Severe mid LAD stenosis, Status post PCI placement of of 1 LORETTA. Complications: None. Estimated blood loss: 5mL-10mL. Responsiveness - Normal response to verbal stimuli; alert and oriented, PERRLA. Airway - Unaffected, no intervention required; spontaneous ventilation. Circulation: W/N/L, pulses unchanged. Nausea/Vomiting: No. Procedure completed. Patient transferred by wheelchair to 1st floor. Vital chart was stopped. Access Site Site: Right Radial artery Sheath Size: 6 Fr Hemostasis Method: TR Band Hemostasis Success: Successful Procedure Medications Start: 10:10 AM Stop: 10:10 AM Medication: Solu-Medrol (methylprednisolone) Amount: 250 mg Route: I.V. Start: 10:14 AM Stop: 10:14 AM Medication: Versed Amount: 1 mg Route: I.V. Start: 10:14 AM Stop: 10:14 AM Medication: Fentanyl Amount: 50 mcg Route: I.V. Start: 10:22 AM Stop: 10:22 AM Medication: Heparin Amount: 6000 units Route: I.V. Start: 10:23 AM Stop: 10:23 AM Medication: Versed Amount: 1 mg Route: I.V. Start: 10:32 AM Stop: 10:32 AM Medication: Fentanyl Amount: 25 mcg Route: I.V. Start: 10:34 AM Stop: 10:34 AM Medication: Versed Amount: 1 mg Route: I.V. Start: 10:39 AM Stop: 10:39 AM Medication: Heparin Amount: 1000 units Route: I.V. Start: 10:47 AM Stop: 10:47 AM Medication: Plavix Amount: 300 mg Route: P.O. Start: 10:20 AM Stop: 10:20 AM Medication: Nitrogylcerin Amount: 200 mcg Route: IIrma Ruffin, the attending physician, have reviewed and verified all procedure medications. Yes, all medications given per verbal order History/Risk Factors Hypertension: Yes Dyslipidemia: Yes Peripheral Arterial Disease (PAD): No Myocardial Infarction (HI): Yes Obesity: No Renal Disease: No Tobacco Use: Current/Recent(w/in 1 year) Prior Interventions PCI: Yes CABG: No Valve Surgery: No Date of PCI: 04/18/2025 Report Signatures Finalized by Keron Tovar MD on 06/18/2025 08:57 AM
[2025-06-03 08:01] VITALS: BP 139/84; PULSE 66; RESP 16; TEMP 37.2; O2SAT 98; BMI 21.5
--- NOTE | 2025-06-03 10:07 | W.PM.OPSFHP ---
Same Day Surgery H&P Indication for Procedure/HPI DATE OF PROCEDURE: June 03, 2025 CHIEF COMPLAINT/INDICATIONFOR SURGICAL PROCEDURE: Coronary artery disease/ Severe mid LAD stenosis PREOP DIAGNOSIS: Severe mid LAD stenosis PLANNED PROCEDURE: Operation Date: 06/03/25 08:30 Proposed Procedures p Percutaneous Coronary Intervention - Staged PCI(Not Applicable) - Keron Tovar M.D 60-year-old man with past medical history of coronary artery disease with recent STEMI he is here for staged PCI of mid LAD. Medications/Allergies* Allergies/Adverse Reactions Allergy/AdvReac Type Severity Reaction Status Date / Time iodine Allergy ALGY-Hives Verified 06/03/25 07:57 shellfish derived Allergy ALGY-Hives Verified 06/03/25 07:57 Current Medications: Generic Name Dose Route Start Last Admin Trade Name Freq PRN Reason Stop Dose Admin Sodium Chloride 1,000 mls @ 50 mls/hr 06/03/25 07:23 06/03/25 07:36 Sodium Chloride 0.9% IV 06/04/25 03:22 Not Given .Q20H ONE Pertinent History/Comorbid Conditions* Medical History (Updated 05/18/25 @ 09:55 by Sakina Fowler) Hypertension Surgical History (Updated 06/16/20 @ 20:43 by ALFA Gil) History of back surgery steel plate Social History Smoking and tobacco/nicotine status: current every day tobacco/nicotine user cigarettes Packs smoked per day: 0.5 Years cigarettes smoked: 40 Second hand smoke exposure: Yes Alcohol intake: former Year of sobriety/quit date alcohol: 2014 Former alcohol use details: drank beer Substance/Drug Use: never Lives independently: Yes Household members: significant other Marital status: service: No Current occupational status: retired Current gender identity: Male Special chantale needs: No Agree to transfusion: Yes Pertinent Exam Findings alert, oriented x 3, clear to auscultation bilaterally and regular rate & rhythm Conscious Sedation Assessment PATIENT ASSESSED PRIOR TO SEDATION, WITH NO CHANGE NOTED: Yes AIRWAY EVAL/ANESTHESIA PLAN: normal airway, ASA III, Local Anesthesia, Risks, benefits & alternatives of sedation and/or procedure discussed and Patient agrees to continue as planned ADDITIONAL INFORMATION: Moderate sedation Recommendations Risks and benefits of procedure reviewed and Patient/family agree to proceed Surgery/Procedure today (Staged PCI of mid LAD) Coding Level of Care Code Acute Code for Chg Fwd
--- NOTE | 2025-06-03 10:57 | PM.PROC ---
Procedure Note: Date of procedure: 06/03/25 Pre-procedure diagnosis: Severe mid LAD stenosis Post-procedure diagnosis: other (s/p PCI with shockwave balloon angioplasty & 1stent) Procedure: Severe mid LAD calcified stenosis. Status post PCI with shockwave balloon angioplasty and 1 stent placement. Dual antiplatelet therapy with aspirin and plavix High intensity statin therapy Performing Provider: Keron Tovar Complications: None Condition: stable Disposition: floor Coding Level of Care Code Acute Code for Alex korin
[2025-06-03 11:30] VITALS: BP 168/85; PULSE 57; PULSE 59; RESP 9; O2SAT 96
--- NOTE | 2025-06-03 11:33 | PC.NURSE ---
patient arrived from manager cath lab at 1105. Report taken from Jennifer Melchor RN. Patient resting comfortably in bed.
[2025-06-03 15:02] VITALS: BP 152/82; PULSE 66; RESP 14; TEMP 36.6; O2SAT 93
--- NOTE | 2025-06-03 15:58 | PC.NURSE ---
Addendum entered by Bobby Mitchell RN 06/03/25 19:11: Patient's bladder continues to be firm upon palpation, bladder scan continues to show 600+ mL in bladder. Nurse again has discussed a pickens catheter with the patient, but he continues to refuse. Nurse has explained risk of bladder and kidney injury to the patient but he still refuses a pickens. Patient is alert, oriented to person, place, time, and situation, and is able to understand the risks. Near end of shift, the patient has started to have an increase in urine output. Approximately 300mL within the last hour, spread over 3 separate voids. Original Note: Patient has had difficulty urinating since cath procedure. Has been able to void 200mL. Bladder scan shows retaining 800mL. BLadder feels firm when palpating.... Nurse assisted the patient in walking around the unit but this has not been effective in allowing him to void. Nurse discussed the likely need for a catheter. Patient is adamantly refusing the catheter. Nurse explained the risks of bladder and kidney injury, but the patient continues to refused. Nurse alerted Dr Tovar. Will continue to encourage voiding/catheter.
[2025-06-03] MEDS: hyDRALAzine 20 mg/mL INJ 1 mL 10 MG IVP (16:41)
--- NOTE | 2025-06-03 19:16 | PC.NURSE ---
Ambulation: Ambulated patient. Walked approximately 200 feet without complication. No abnormal heart rate or rythm. When asked the patient states that he feels comfortable and safe going home at his current activity level/ability.
[2025-06-03 19:37] VITALS: BP 141/79; PULSE 96; RESP 16; TEMP 37; O2SAT 95
[2025-06-03 23:17] VITALS: BP 127/70; PULSE 88; RESP 18; TEMP 36.8; O2SAT 94
[2025-06-04 04:00] VITALS: BP 141/80; PULSE 82; RESP 18; TEMP 36.9; O2SAT 94
[2025-06-04 04:49] LABS: Hematocrit 39.2 % (37-53); Hemoglobin 12.90 g/dL (11.27-16.99); Mean Corpuscular HGB Conc 32.9 g/dL (30-55); Mean Corpuscular Hemoglobin 30.2 pg (27-33); Mean Corpuscular Volume 91.8 fl (82-101); Nucleated Red Blood Cells % 0 %; Platelet Count 382 10^3/cmm (157-399); Red Blood Count 4.27 10^6/uL (3.85-5.65); White Blood Count 12.00 10^3/uL (3.29-11.43)
[2025-06-04 05:09] LABS: Anion Gap 18.0 (5-19); Blood Urea Nitrogen 20 mg/dL (8-23); Calcium 9.3 mg/dL (8.5-10.5); Carbon Dioxide 23 mmol/L (22-29); Chloride 103 mmol/L (98-107); Creatinine Clr Calc Pharmacy 77.9199; Glucose 108 mg/dL (65-115); Osmolality Calculated 293 mOsm/kg (285-295); Potassium 4.0 mmol/L (3.5-5.1); Sodium 140 mmol/L (136-145)
[2025-06-04 07:37] VITALS: BP 124/62; PULSE 86; RESP 14; TEMP 36.5; O2SAT 95
--- NOTE | 2025-06-04 08:52 | PM.PN ---
Vitals/I&O/Wt Last Vital Signs Temp 97.7 F 06/04/25 07:37 Pulse 86 06/04/25 07:37 Resp 14 06/04/25 07:37 BP 124/62 06/04/25 07:37 Pulse Ox 95 06/04/25 07:37 O2 Del Method Room Air 06/04/25 07:37 06/03/25 06/04/25 06/04/25 22:59 06:59 14:59 Intake Total 1450 / 1450 0 / 1450 Output Total 925 / 1175 250 / 1175 250 / 250 Balance 525 / 275 -250 / 275 -250 / -250 Weight last 48 hrs Weight 150 lb Data 06/04/25 04:35 06/04/25 04:35 A&P PDMP PDMP Reviewed: Not Reviewed Coding Level of Care Code Acute Code for Chg Fwd
--- NOTE | 2025-06-04 08:59 | P.DS_ITS ---
<Statement entered by Keron Tovar M.D - 06/05/25 21:33> Patient was cared for in conjunction with an advanced practice practitioner. I reviewed the chart and all pertinent data including imaging, telemetry, and laboratory results. I discussed the patient in detail with the advanced practice practitioner. Please see their note for agreed upon plan of care and results for the patient. Discharge Providers Date of Admission: 06/03/2025 Date of Discharge: June 04, 2025 Attending Provider at Admission: Keron Tovar M.D Attending Provider at Discharge: Keron Tovar M.D Primary Care Provider: Rafaela Tucker APN Reason for Visit Reason for Visit: I25.10 Brief History: Fortino Barfield is a 60-year-old male with past medical history of CAD and recent STEMI, with 2 stents to the mid RCA. He also had significant mid LAD stenosis; at time of discharge the plan was for staged PCI. Hospital Course Hospital Course He was brought in for the staged PCI of the mid LAD yesterday, stenosis was treated with shockwave, balloon angioplasty and LORETTA x 1. He has done well overnight with no arrhythmias, good blood pressure control. Creatinine this morning 1.0. No complications with right radial cath site. He will discharge home continuing aspirin and Plavix, high intensity statin. Will plan for follow-up in the cardiology clinic in 2 weeks. Reminded him of the importance of medication adherence. Physical Exam Const: COMMON NORMALS: no acute distress and patient oriented x3 GENERAL APPEARANCE: cooperative ORIENTATION/CONSCIOUSNESS: Yes awake, Yes oriented to person, Yes oriented to place and Yes oriented to time Chest: COMMONS NORMALS: normal inspection of the chest and normal palpation of entire chest wall CHEST: Yes Symmetrical chest wall rise Resp: COMMON NORMALS: normal respiratory effort, No retractions, No use of accessory muscles and clear to auscultation bilaterally AUSCULTATION: clear to auscultation bilaterally Cardio: COMMON NORMALS: regular rate, regular rhythm, S1 normal heart sound present, S2 normal heart sound present, No gallops present (Cardio), No clicks present (Cardio), No murmurs present (Cardio) and No rub (Cardio) RATE: regular rate RHYTHM: regular rhythm HEART SOUNDS: S1 normal heart sound present and S2 normal heart sound present PERIPHERAL PULSES: radial pulses present positive right 2+ and femoral pulses present positive right 2+ Neuro: COMMON NORMALS: patient oriented x3 and moves all extremities SENSORIUM/ORIENTATION: Yes oriented to person, Yes oriented to place and Yes oriented to time Skin: WOUNDS: Yes surgical site (no hematoma palpable) Details: no odor Discharge Data Studies Completed and Pending Pending at discharge Category Date Time Status MEDICAL TRANSPORT SPECIALIST request for service Routine Exams 06/03/25 07:22 Taken Laboratory Results WBC 12.00 10^3/uL (3.29-11.43) H 06/04/25 04:35 RBC 4.27 10^6/uL (3.85-5.65) 06/04/25 04:35 Hgb 12.90 g/dL (11.27-16.99) 06/04/25 04:35 Hct 39.2 % (37-53) 06/04/25 04:35 MCV 91.8 fl (82-101) 06/04/25 04:35 MCH 30.2 pg (27-33) 06/04/25 04:35 MCHC 32.9 g/dL (30-55) 06/04/25 04:35 RDW 14.0 % (12.1-15.1) 06/04/25 04:35 Plt Count 382 10^3/cmm (157-399) 06/04/25 04:35 MPV 8.6 fL (7.4-10.4) 06/04/25 04:35 Neut % (Auto) 69.6 % 06/04/25 04:35 Lymph % (Auto) 21.1 % 06/04/25 04:35 Ness % (Auto) 8.6 % 06/04/25 04:35 Eos % (Auto) 0.1 % 06/04/25 04:35 Baso % (Auto) 0.3 % 06/04/25 04:35 Neut # (Auto) 8.36 10^3/uL (1.8-7.7) H 06/04/25 04:35 Lymph # (Auto) 2.5 10^3/uL (0.8-4.8) 06/04/25 04:35 Ness # (Auto) 1.0 10^3/uL (0.2-0.9) H 06/04/25 04:35 Eos # (Auto) 0.0 10^3/uL (0.0-0.8) 06/04/25 04:35 Baso # (Auto) 0.0 10^3/uL (0.0-0.1) 06/04/25 04:35 Nucleated RBC % (auto) 0 % 06/04/25 04:35 Nucleated RBCs # 0.0 /100WBC 06/04/25 04:35 Sodium 140 mmol/L (136-145) 06/04/25 04:35 Potassium 4.0 mmol/L (3.5-5.1) 06/04/25 04:35 Chloride 103 mmol/L (98-107) 06/04/25 04:35 Carbon Dioxide 23 mmol/L (22-29) 06/04/25 04:35 Anion Gap 18.0 (5-19) 06/04/25 04:35 BUN 20 mg/dL (8-23) 06/04/25 04:35 Creatinine 1.0 mg/dL (0.7-1.2) 06/04/25 04:35 GFR Calculation 76.0 mL/min (90-130) L 06/04/25 04:35 Glucose 108 mg/dL (65-115) 06/04/25 04:35 POC Glucose 97 mg/dL (70-110) 06/03/25 12:22 Calculated Osmolality 293 mOsm/kg (285-295) 06/04/25 04:35 Calcium 9.3 mg/dL (8.5-10.5) 06/04/25 04:35 Vitals Last Vital Signs Temp 97.7 F 06/04/25 07:37 Pulse 86 06/04/25 07:37 Resp 14 06/04/25 07:37 BP 124/62 06/04/25 07:37 Pulse Ox 95 06/04/25 07:37 O2 Del Method Room Air 06/04/25 07:37 Discharge Plan Discharge Patient Disposition: Home Prescriptions: Continued atorvastatin 40 mg Tablet 40 mg PO BEDTIME Qty: 90 1RF clopidogrel 75 mg Tablet 75 mg PO DAILY Qty: 90 3RF aspirin 81 mg Tablet,Delayed Release (Dr/Ec) 81 mg PO DAILY Qty: 90 0RF metoprolol tartrate 50 mg Tablet 25 mg PO BID@0900,2100 Qty: 180 1RF nitroglycerin 0.4 mg Tablet, Sublingual 0.4 mg sublingual Q5M PRN (Reason: Chest Pain) Qty: 30 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 Print Language: Armenian Discharge Date/Time: 06/04/25 11:46 Discharge Attestations Time Spent in Discharge Care*: less than 30 min Quality Metrics Clinical Quality Measures [ No reported AMI, CVA or VTE this stay] Coding Level of Care Code Acute Code for Chg Jeni
--- NOTE | 2025-06-04 11:42 | PC.NURSE ---
discharge instructions given and explained.pt verb understanding of instructions.discharged ambulatory to exit at this time.friend to drive pt home
[2025-06-04 11:44] VITALS: BP 137/84; PULSE 75; RESP 18; O2SAT 95
== END 2025-06-04 11:46 | disposition home or self-care (01) ==
LOC: CCL 07:03 → CSU 11:24
PROVIDERS: Nurse Practitioner Family; PCP Nurse Practitioner Family; Visit Provider Internal Medicine
DX: I25.10 Atherosclerotic heart disease of native coronary artery without angina pectoris (principal); I10 Essential (primary) hypertension; E78.5 Hyperlipidemia, unspecified; I25.2 Old myocardial infarction; F17.210 Nicotine dependence, cigarettes, uncomplicated; Z79.82 Long term (current) use of aspirin
CPT/HCPCS: 36415; 36416; 80048; 82962; 85025; 85347; 92972; 93454; 96374; 99152; 99153; C1725; C1761; C1769; C1874; C1887; C1894; C9765; J0360; J1644; J2250; J2919; J3010; J3490; J7030; J9999; Q0163; Q9967

== ENCOUNTER → 2025-06-22 12:24 | Outpatient (BNVA) | payer MEDICAID, SELFPAY | PROVIDERS: PCP Nurse Practitioner Family; Visit Provider Internal Medicine | DX: Z09 Encounter for follow-up examination after completed treatment for conditions other than malignant neoplasm (principal); E78.5 Hyperlipidemia, unspecified; I10 Essential (primary) hypertension; F17.210 Nicotine dependence, cigarettes, uncomplicated; I25.10 Atherosclerotic heart disease of native coronary artery without angina pectoris; Z95.5 Presence of coronary angioplasty implant and graft | CPT/HCPCS: 99214 ==